=== PATIENT | female | born 1970 | race American Indian/Alaskan Native ===

== ENCOUNTER 2018-10-29 13:32 | Outpatient (CLI) | payer MEDICAID ==
--- NOTE | 2018-10-29 15:12 | Mammography Report ---
RIGHT DIGITAL DIAGNOSTIC MAMMOGRAM: 10/29/18 13:32:00 CLINICAL: For clip placement immediately status post ultrasound biopsy. COMPARISON:08/09/18 and 09/23/18 [facility] mammograms FINDINGS: A biopsy clip is now identified within the previously described mammographic density at 9 o'clock. IMPRESSION: Concordant clip placement status post ultrasound biopsy. BI-RADS CATEGORY: 4A--Mildly Suspicious Pathology pending.
--- NOTE | 2018-10-29 15:21 | Ultrasound Report ---
VACUUM ASSISTED ULTRASOUND GUIDED NEEDLE CORE BIOPSY WITH CLIP PLACEMENT : 10/29/18 13:32:00 CLINICAL: Right breast mass at 9 o'clock 7 cm from the nipple. COMPARISON :09/23/18 [facility] mammogram and ultrasound. FINDINGS: The procedure was explained to the patient and informed consent was obtained. Ultrasound demonstrated the previously described oval slightly irregular hyperechoic shadowing mass at 9 o'clock 7 cm from the nipple. The skin was prepped with Betadine and anesthetized with 1% lidocaine. Vacuum-assisted needle core biopsy was performed through a small dermatotomy using ultrasound guidance, 2% lidocaine with epinephrine for deep anesthesia and a 13-gauge Mammotome Elite biopsy probe. Multiple cores were obtained and placed in formalin. A hydro-brady clip was deployed at the site. Hemostasis was achieved with minimal pressure and a sterile dressing was applied. The patient tolerated the procedure well and there were no apparent complications. A two view mammogram demonstrated concordant clip placement. The patient left the department in good condition with instructions for wound care and follow up. IMPRESSION: Uncomplicated vacuum-assisted ultrasound core biopsy and clip placement right breast.
== END 2018-10-29 13:33 | disposition home or self-care (01) ==
LOC: SPVWC 13:32
PROVIDERS: ATTEND Surgery
DX: D24.1 Benign neoplasm of right breast (principal); R92.0 Mammographic microcalcification found on diagnostic imaging of breast
CPT/HCPCS: 88305